=== PATIENT | female | born 1965 | race Caucasian/White ===

== ENCOUNTER 2020-05-10 11:40 | Day surgery (SDC) | payer BC, SELFPAY ==
[2020-05-03 16:19] LABS: BASOPHILS % (AUTO) 0.6 % (0.0-2.0); EOSINOPHILS # (AUTO) 0.1 K/uL (0.0-0.4); EOSINOPHILS % (AUTO) 1.2 % (0.0-4.0); HEMATOCRIT 43.5 % (36-48); HEMOGLOBIN 14.3 g/dL (12.0-16.0); LYMPHOCYTES # (AUTO) 1.7 K/uL (1.0-5.5); LYMPHOCYTES % (AUTO) 26.2 % (20.5-51.5); MEAN CORPUSCULAR HEMOGLOBIN 29 pg (27-31); MEAN CORPUSCULAR HGB CONC 33 % (32-36); MEAN CORPUSCULAR VOLUME 89 fL (79.0-98.0); MONOCYTES # (AUTO) 0.6 K/uL (0.0-1.0); MONOCYTES % (AUTO) 9.6 % (1.7-9.3); NEUTROPHILS # (AUTO) 4.1 K/uL (1.8-7.7); NEUTROPHILS % (AUTO) 62.4 % (40.0-70.0); PLATELET COUNT (AUTO) 198 K/uL (130-430); RED BLOOD CELL COUNT(AUTO) 4.91 MIL/uL (4.2-6.2); RED CELL DISTRIBUTION WIDTH 13.6 % (9.0-15.0); WHITE BLOOD COUNT (AUTO) 6.6 K/uL (4.8-10.8)
[2020-05-03 16:39] LABS: ALBUMIN 3.9 g/dL (3.4-4.8); CALCIUM 8.8 mg/dL (8.4-11.0); CREATININE 0.65 mg/dL (0.55-1.30); POTASSIUM 3.9 mmol/L (3.5-5.1); TOTAL BILIRUBIN 0.9 mg/dL (0.0-1.0)
[~2020-05-10] VITALS: Ht 177.8 cm; Wt 87.5 kg
[2020-05-10] MEDS ORDERED: cefOXitin SODIUM 2 GM in D5W 100 ML IV ONE (13:30)
[2020-05-10] MEDS ORDERED: cefOXitin 2 GM IVPB PREMIX 50 ML IV ONE (13:30)
[2020-05-10] MEDS ORDERED: ONDANSETRON HCL 4 MG/2 ML VIAL IVP PRN (15:15)
[2020-05-10] MEDS ORDERED: KETOROLAC TROMETHAMINE 30 MG VIAL IVP PRN (15:15)
[2020-05-10] MEDS ORDERED: HYDROmorphone 1 MG INJ. 1 MG/ML AMPUL IVP PRN ×2 (15:15)
[2020-05-10] MEDS ORDERED: ONDANSETRON HCL 4 MG/2 ML VIAL ONE (15:22)
[2020-05-10] MEDS ORDERED: NS IRRIG SOLN 1000 ML IR ONE (15:22)
[2020-05-10] MEDS ORDERED: fentaNYL CITRATE/PF 100 MCG/2 ML AMP ONE (15:22)
[2020-05-10] MEDS ORDERED: DEXAMETHASONE SOD PHOSPHATE 4 MG/ML VIAL ONE (15:22)
[2020-05-10] MEDS ORDERED: MIDAZOLAM HCL 5 MG/ML VIAL (VERSED) IV ONE (15:22)
[2020-05-10] MEDS ORDERED: METOCLOPRAMIDE HCL 10 MG/2 ML VIAL ONE (15:22)
[2020-05-10] MEDS ORDERED: KETOROLAC TROMETHAMINE 30 MG VIAL ONE (15:22)
[2020-05-10] MEDS ORDERED: SEVOFLURANE 15 MIN GAS INH ONE (15:22)
[2020-05-10] MEDS ORDERED: GLYCOPYRROLATE 0.2 MG/ML VIAL ONE (15:22)
[2020-05-10] MEDS ORDERED: CEFAZOLIN 2 GM IVPB PREMIX 50 ML IV ONE (15:22)
[2020-05-10] MEDS ORDERED: PROPOFOL 200MG/ 20ML VIAL (DIPRIVAN) IV ONE (15:22)
[2020-05-10] MEDS ORDERED: LR 1,000 ML IV.SOLN IV ONE (15:22)
[2020-05-10] MEDS ORDERED: NEOSTIGMINE METHYLSULFATE 1 MG/ML, 10 ML VIAL ONE (15:22)
[2020-05-10] MEDS ORDERED: ROCURONIUM BROMIDE 10 MG/ML (ZEMURON) ONE (15:22)
[2020-05-10 18:18] VITALS: BP_SYST 111
== END 2020-05-10 18:00 | disposition home or self-care (01) ==
LOC: SDS 11:40 → SMU 11:42 → SDS 18:00
PROVIDERS: ATTEND Surgery
DX: K80.10 Calculus of gallbladder with chronic cholecystitis without obstruction (principal); K42.9 Umbilical hernia without obstruction or gangrene; Z11.59 Encounter for screening for other viral diseases
CPT/HCPCS: 36415; 47562; 49652; 71046; 80053; 85025; 88304; 93005; J0690; J0694; J1100; J1885; J2250; J2405; J2704; J2710; J2765; J3010; J3490; J7060; J7120; U0003